=== PATIENT | female | born 1990 | race Caucasian/White ===

== ENCOUNTER 2019-10-17 13:40 | Emergency (ER) | payer MEDICAID, OTHER ==
[~2019-10-17] VITALS: Ht 157.5 cm; Wt 47.2 kg
--- NOTE | 2019-10-17 16:37 | ED Upper Extremity ---
General Chief Complaint: Upper Extremity Stated Complaint: R SHOULDER PAIN;FLU POSITIVE Nursing Triage Note: PT AMBULATE TO TRIAGE WITH C/O RIGHT SHOULD PAIN STARTING YESTERDAY. PT REPORTS NO ACCIDENT OR KNOWN CAUSE. PT IS POSITIVE FOR FLU AND THOUGHT IT MAY BE SIMPLE BODY ACHES BUT THE PAIN HAS INCREASED. Nursing Sepsis Screen: No Definite Risk Source: patient Exam Limitations: no limitations History of Present Illness Date Seen by Provider: Oct 17, 2019 Time Seen by Provider: 16:36 Initial Comments Right shoulder pain no known injury. Positive for flu and has been coughing a lot. Onset: yesterday Severity: moderate Pain/Injury Location: right shoulder Method of Injury: unknown Modifying Factors: Worse With Movement Allergies and Home Medications Allergies Coded Allergies: amoxicillin (Verified Allergy, Unknown, 10/17/19) azithromycin (Verified Allergy, Unknown, 10/17/19) morphine (Verified Allergy, Unknown, 10/17/19) Home Medications Doxycycline Hyclate 100 Mg Tablet, 100 MG PO BID Prescribed by: ADDY CARR on 10/17/19 9298 Patient Home Medication List Home Medication List Reviewed: Yes Review of Systems Constitutional: see HPI, chills EENTM: see HPI Respiratory: see HPI, cough Cardiovascular: no symptoms reported Genitourinary: no symptoms reported Musculoskeletal: see HPI Skin: no symptoms reported Psychiatric/Neurological: No Symptoms Reported Past [id number]-[id number] Hx Patient Social History Alcohol Use: Denies Use Recreational Drug Use: No Smoking Status: Current Everyday Smoker Type Used: Cigars 2nd Hand Smoke Exposure: Yes Recent Foreign Travel: No Contact w/Someone Who Travel: No Recent Infectious Disease Expo: No Recent Hopitalizations: No Physical Abuse: No Sexual Abuse: No Mistreated: No Fear: No Seasonal Allergies Seasonal Allergies: No Past Medical History Surgeries: Yes Section, Tubal Ligation Respiratory: No Cardiac: No Neurological: No Sexually Transmitted Disease: No Genitourinary: No Gastrointestinal: No Musculoskeletal: No Endocrine: No HEENT: No Cancer: No Psychosocial: No Integumentary: No Blood Disorders: No Physical Exam Vital Signs Vital Signs - First Documented 10/17/19 10/17/19 13:46 16:43 Temp 36.7 Pulse 101 Resp 19 B/P (MAP) 129/80 (96) Pulse Ox 98 O2 Delivery Room Air Capillary Refill : Less Than 3 Seconds Height, Weight, BMI Height: '" Weight: lbs. oz. kg; 19.00 BMI Method: General Appearance: WD/WN, no apparent distress HEENT: PERRL/EOMI, normal ENT inspection Respiratory: no respiratory distress, no accessory muscle use Shoulder: normal inspection Elbow/Forearm: normal inspection, non-tender Hand: normal inspection, non-tender Neurologic/Psychiatric: alert, normal mood/affect, oriented x 3 Skin: normal color, warm/dry Progress/Results/Core Measures Results/Orders My Orders Orders - ADDY CARR APRN Chest Pa/Lat (2 View) (10/17/19 15:48) Shoulder, Right, 3 Views (10/17/19 15:48) Vital Signs/I&O Blood Pressure Mean: 96 Departure Impression Primary Impression: Shoulder pain Qualified Codes: M25.511 - Pain in right shoulder Disposition: HOME, SELF-CARE Condition: Stable Departure-Patient Inst. Decision time for Depature: 16:36 Patient Instructions: Shoulder Pain (DC) Add. Discharge Instructions: 1. Return to ER for any concerns 2.. Tylenol and ibuprofen for pain control 3. All discharge instructions reviewed with patient and/or family. Voiced understanding. Scripts Doxycycline Hyclate (Doxycycline Hyclate) 100 Mg Tablet 100 MG PO BID, #14 TAB 0 Refills Prov: ADDY CARR APRN 10/17/19 Work/School Note: Work Release Form Date Seen in the Emergency Department: Oct 17, 2019 Return to Work: Oct 19, 2019 ADDY CARR APRN Oct 17, 2019 16:37
[2019-10-17 16:43] VITALS: BP 129/80
--- NOTE | 2019-10-17 17:06 | Diagnostic Imaging Report ---
INDICATION: Pain. COMPARISON: None available. TECHNIQUE: Three radiographs of the right shoulder dated October 17, 2019. FINDINGS: The acromioclavicular joint is unremarkable. No acute fracture or dislocation. No destructive osseous process. Subacromial space is well maintained. Nodular density is suggested within the right midlung. IMPRESSION: 1. No acute osseous abnormality. 2. Nodular density within the right midlung, which may relate to focal infiltrate versus atelectasis versus pulmonary nodule. Dedicated radiographs of the chest are recommended. Dictated by: Dictated on workstation # [id number]
--- NOTE | 2019-10-17 17:11 | Diagnostic Imaging Report ---
HISTORY: Right shoulder pain and flu. COMPARISON: None. TECHNIQUE: Two views of the chest. FINDINGS: Lung volumes are normal. There are airspace opacities in the right lower lobe. No pleural effusion or pneumothorax is seen. The cardiac silhouette is normal in size and contour. There is a curvilinear metal structure in the soft tissues of the left breast. IMPRESSION: 1. Airspace opacities in the right lower lobe, consistent with pneumonia in the appropriate clinical setting. 2. Curvilinear metal structure in the soft tissues of the left breast, may represent a piercing. Dictated by: Dictated on workstation # [id number]
[2019-10-17] MEDS ORDERED: DOXY100T2 PO (17:31)
== END 2019-10-17 17:15 | disposition home or self-care (01) ==
LOC: ER 13:41
DX: M25.511 Pain in right shoulder (principal); F17.290 Nicotine dependence, other tobacco product, uncomplicated; Z88.0 Allergy status to penicillin; Z88.1 Allergy status to other antibiotic agents; Z88.5 Allergy status to narcotic agent
CPT/HCPCS: 71046; 73030